=== PATIENT | male | born 1970 | race Caucasian/White ===

== ENCOUNTER 2017-05-17 09:21 | Emergency (ER) | payer OTHER ==
[2017-05-17 10:41] VITALS: BP 135/84
--- NOTE | 2017-05-17 11:07 | UC ---
General HPI - HPI Summary HPI Summary: 46 yo gentleman c/o last 3 days sinus pressure, cough. Sore throat with cough. Subj fever yesterday. Reports that he has a hx sinusitis every couple years, feels the same. Also notes that he has been tested for strep many times, and always negative. Mild cough, productive from sinus secretions, does not feel that cough is primary. No rash. No GI issues reported. - History of Current Complaint Chief Complaint: UCGeneralIllness Stated Complaint: SINUS Time Seen by Provider: 05/17/17 10:47 Hx Obtained From: Patient Pain Intensity: 0 - Allergy/Home Medications Allergies/Adverse Reactions: Allergies Allergy/AdvReac Type Severity Reaction Status Date / Time No Known Allergies Allergy Verified 05/17/17 10:41 Home Medications: Home Medications Cetirizine* [ZyrTEC 10 MG TAB*] 05/17/17 [History] PMH/Surg Hx/FS Hx/Imm Hx Previously Healthy: Yes - Surgical History Surgical History: Yes Surgery Procedure, Year, and Place: vasectomy - Family History Known Family History: Positive: Unknown - Social History Alcohol Use: None Substance Use Type: None Smoking Status (MU): Never Smoked Tobacco Review of Systems Constitutional: Fatigue Skin: Negative Eyes: Negative ENT: Sore Throat, Nasal Discharge, Sinus Congestion, Sinus Pain/Tenderness Respiratory: Cough Cardiovascular: Negative Gastrointestinal: Negative Genitourinary: Negative Motor: Negative Neurovascular: Negative Musculoskeletal: Negative Neurological: Negative Psychological: Negative Is Patient Immunocompromised?: No All Other Systems Reviewed And Are Negative: Yes Physical Exam Triage Information Reviewed: Yes Appearance: Well-Appearing, Well-Nourished Vital Signs: Initial Vital Signs Temp 98.5 F 05/17/17 10:36 Pulse 74 05/17/17 10:36 Resp 16 05/17/17 10:36 BP 135/84 05/17/17 10:36 Pulse Ox 98 05/17/17 10:36 Vital Signs Reviewed: Yes Eye Exam: Normal ENT: Positive: Pharyngeal erythema - no sores, no exudate. Uvula midline., Nasal congestion, TM dull - dull au TM, Hoarse voice - voice a little hoarse, Sinus tenderness Neck exam: Normal Neck: Positive: Supple Respiratory Exam: Normal Respiratory: Positive: Chest non-tender, Lungs clear, Normal breath sounds, No respiratory distress, No accessory muscle use Cardiovascular Exam: Normal Cardiovascular: Positive: RRR, No Murmur, Pulses Normal, Brisk Capillary Refill Abdominal Exam: Normal Abdomen Description: Positive: Nontender Musculoskeletal Exam: Normal Musculoskeletal: Positive: Strength Intact Neurological Exam: Normal - grossly nonfocal Psychological Exam: Normal - conversing easily and appropriately Skin Exam: Normal - no visible or reported rash. non-diaphoretic. Course/Dx - Course Course Of Treatment: Influenza nasal swab and strep testing discussed. Cough carefully considered but declined. Feels like usual sinus infection. Coa / tx plan discussed. Questions as posed answered to the best of my ability. - Differential Dx - Multi-Symptom Provider Diagnoses: Sinusitis Discharge - Discharge Plan Condition: Stable Disposition: HOME Prescriptions: Azithromyxin GRETA (NF) [Z-Greta (Zithromax) 250 mg tabs #6] 2 tab PO .TODAY, THEN 1 DAILY #6 tab Patient Education Materials: Antihistamine (By mouth), Sinusitis (ED) Referrals: Bianca Madera MD [Primary Care Provider] - Additional Instructions: Follow up with your primary care provider, per routine. Seek medical attention for worse or new problems in the meantime.
== END 2017-05-17 11:13 | disposition home or self-care (01) ==
LOC: UCCORT 09:21
DX: J32.9 Chronic sinusitis, unspecified (principal)
CPT/HCPCS: 99202; G0463

== ENCOUNTER 2019-05-09 08:48 | Emergency (ER) | payer OTHER ==
--- OUTSIDE RECORDS SUMMARY | 2019-05-09 08:58 | XMS REPORT | Continuity of Care Document ---
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 Problems Provider Date Prepatellar bursitis of right knee Lisa Thomas PA Onset: 02/26/2019 Social History Type Date Description Comments Sex Unknown Tobacco Use Start: Unknown Never Smoked Cigarettes Smoking Status Reviewed: 02/26/19 Never Smoked Cigarettes ETOH Use Denies alcohol use Tobacco Use Start: Unknown Patient has never smoked Recreational Drug Use Denies Drug Use Allergies, Adverse Reactions, Alerts Description No Known Drug Allergies Medications Active Medications SIG Qnty Indications Ordering Provider Date Multivitamin & Mineral 1 tablet by Unknown mouth once a day Liquid Xyzal Allergy 24HR 1 by mouth every Unknown 5mg day Tablets Benadryl Allergy 1/2 tab by Unknown 25mg mouth every Capsules night History Medications Keflex 1 by mouth 4 40capCarol Brewster MD 02/26/2019 - 500mg Capsules times a day 03/15/2019 Medications Administered in Office Medication SIG Qnty Indications Ordering Provider Date Depomedrol 40mg/1cc Homa Roberson [facility] 03/15/2019 (methylprednisolone acetate) Injection Depomedrol 40mg/1cc Homa Roberson [facility] 03/15/2019 (methylprednisolone acetate) Injection Immunizations Description No Information Available Vital Signs Date Vital Result Comment 03/15/2019 8:13am BP Systolic Sitting Left Arm 132 mmHg BP Diastolic Sitting Left Arm 85 mmHg Heart Rate 78 /min 03/01/2019 9:51am BP Systolic 117 mmHg BP Diastolic 73 mmHg Body Temperature 96.3 F Heart Rate 71 /min O2 % dC Oximetry 96 % Results Description No Information Available Procedures Date Code Description Status 03/15/2019 19547 Asp./Injection major joint Completed 02/23/2019 41470 Radiology, Knee 3 Views Completed Medical Devices Description No Information Available Encounters Type Date Location Provider Dx Diagnosis Office Visit 03/15/2019 Orthopaedic Office Homa Roberson M25.461 Effusion, right 8:00a S., [facility] knee M70.41 Prepatellar bursitis, right knee M25.561 Pain in right knee S83.221D Prph tear of medial meniscus, current injury, r knee, subs Office Visit 03/01/2019 9:45a Orthopaedic Office Karol, M25.461 Effusion, right Homa S., knee [facility] M25.561 Pain in right knee M70.41 Prepatellar bursitis, right knee S83.511D Sprain of anterior cruciate ligament of right knee, subs Office Visit 02/26/2019 Orthopaedic Lisa Thomas, M70.41 Prepatellar 2:00p Office PA bursitis, right knee Office Visit 02/23/2019 Orthopaedic Homa Roberson M25.561 Pain in right 10:00a Office S., [facility] knee M70.41 Prepatellar bursitis, right knee Assessments Date Code Description Provider 03/15/2019 M25.461 Effusion, right knee RobersonHoma S., [facility] 03/15/2019 M70.41 Prepatellar bursitis, right knee RobersonAdrianeHoma S., [facility] 03/15/2019 M25.561 Pain in right knee RobersonAdrianeHoma S., [facility] 03/15/2019 S83.221D Peripheral tear of medial meniscus, Homa Roberson S., [facility] current injury, right knee, subsequent encounter 03/01/2019 M25.461 Effusion, right knee RobersonHoma S., [facility] 03/01/2019 M25.561 Pain in right knee RobersonAdrianeHoma S., [facility] 03/01/2019 M70.41 Prepatellar bursitis, right knee RobersonAdrianeHoma S., [facility] 03/01/2019 S83.511D Sprain of anterior cruciate ligament of Roberson, Homa S., [facility] right knee, subsequent encounter 02/26/2019 M70.41 Prepatellar bursitis, right knee Lisa Thomas PA 02/23/2019 M25.561 Pain in right knee Homa Roberson, [facility] 02/23/2019 M70.41 Prepatellar bursitis, right knee Homa Roberson [facility] Plan of Treatment No Information Available Functional Status Description No Information Available Mental Status Description No Information Available Referrals Description No Information Available
--- OUTSIDE RECORDS SUMMARY | 2019-05-09 08:58 | XMS REPORT | Continuity of Care Document ---
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 Problems Provider Date Prepatellar bursitis [...] Ordering Provider Date Depomedrol 40mg/1cc Homa Roberson [facility] 03/15/2019 (methylprednisolone acetate) Injection Depomedrol 40mg/1cc Homa Roberson [facility] 03/15/2019 (methylprednisolone acetate) Injection Immunizations Description [...] Available Procedures Date Code Description Status 03/15/2019 60900 Asp./Injection major joint Completed 02/23/2019 25300 Radiology, Knee 3 Views Completed Medical Devices Description No Information Available Encounters Type Date Location Provider Dx Diagnosis Office Visit 03/01/2019 Orthopaedic Office Homa Roberson M25.461 Effusion, right 9:45a S., [facility] knee M25.561 Pain in right knee M70.41 Prepatellar bursitis, right knee S83.511D Sprain of anterior cruciate ligament of right knee, subs Office Visit 02/26/2019 Orthopaedic Lisa Thomas, M70.41 Prepatellar 2:00p Office PA bursitis, right knee Office Visit 02/23/2019 Orthopaedic Homa Roberson M25.561 Pain in right 10:00a Office S., [facility] knee M70.41 Prepatellar bursitis, right knee Assessments Date Code Description Provider 03/15/2019 M25.461 Effusion, right knee Roberson, Homa S., [facility] 03/15/2019 M70.41 Prepatellar bursitis, right knee Roberson, Homa S., [facility] 03/15/2019 M25.561 Pain in right knee Roberson, Homa S., [facility] 03/01/2019 M25.461 Effusion, right knee Roberson, Homa S., [facility] 03/01/2019 M25.561 Pain in right knee Roberson, Homa S., [facility] 03/01/2019 M70.41 Prepatellar bursitis, right knee Roberson, Homa S., [facility] 03/01/2019 S83.511D Sprain of anterior cruciate ligament of Roberson, Homa S., [facility] right knee, subsequent encounter 02/26/2019 M70.41 Prepatellar bursitis, right knee Lisa Thomas, PA 02/23/2019 M25.561 Pain in right knee Roberson, Homa S., [facility] 02/23/2019 M70.41 Prepatellar bursitis, right knee Roberson, Homa S., [facility] Plan of Treatment No Information Available Functional Status Description No Information Available Mental Status Description No Information Available Referrals Description No Information Available
[2019-05-09 09:14] VITALS: BP 148/88
--- NOTE | 2019-05-09 09:39 | UC ---
Abdominal Pain Male HPI - HPI Summary HPI Summary: 48 yo with onset of abdominal pain last night shortly after eating a light meal. Typically healthy with no hx of acid reflux, ulcer, irritable bowel. Normally passes stool daily and he had a normal stool passage in the night which did not relieve the pain. No hx of abdominal surgery in the past. No fever, has mild nausea, decreased appetite. Pain a bit decreased but still present. Does not drink alcohol, use nsaid's more than once or twice per month. Has modest intake of coffee. Eats well, non-smoker. - History of Current Complaint Chief Complaint: UCAbdominalPain Stated Complaint: ABDOMINAL PAIN Time Seen by Provider: 05/09/19 09:36 Hx Obtained From: Patient Onset/Duration: Sudden Onset, Lasting Hours - about 14 Severity Initially: Severe Severity Currently: Moderate Pain Intensity: 5 Location: Epigastric Radiates: No Character: Cramping, Dull Aggravating Factor(s): Movement Associated Signs And Symptoms: Positive: Decreased Appetite, Nausea. Negative: Diaphoresis, Fever, Cough, Chest Pain, Back Pain, Constipation, Blood in Stool, Vomiting, Diarrhea - Risk Factors Testicular Torsion: Negative Cardiac Risk Factors: Negative - Allergies/Home Medications Allergies/Adverse Reactions: Allergies Allergy/AdvReac Type Severity Reaction Status Date / Time No Known Allergies Allergy Verified 05/09/19 09:10 Home Medications: Home Medications Simethicone [Gas-X] 250 mg PO ONCE 05/09/19 [History Confirmed 05/09/19] PMH/Surg Hx/FS Hx/Imm Hx Previously Healthy: Yes - Surgical History Surgical History: Yes Surgery Procedure, Year, and Place: vasectomy - Family History Known Family History: Positive: Other - No FH of GI disease - Social History Occupation: Employed Full-time Lives: With Family Alcohol Use: None Substance Use Type: None Smoking Status (MU): Former Smoker Review of Systems All Other Systems Reviewed And Are Negative: Yes Constitutional: Positive: Negative Skin: Positive: Negative Eyes: Positive: Negative ENT: Positive: Negative Respiratory: Positive: Negative Cardiovascular: Negative: Palpitations, Chest Pain Genitourinary: Negative: Dysuria, Frequency, Urgency Motor: Positive: Negative Neurovascular: Positive: Negative Musculoskeletal: Positive: Negative Neurological/Mental Status: Positive: Negative Psychological: Positive: Negative Is Patient Immunocompromised?: No Physical Exam Triage Information Reviewed: Yes Appearance: Well-Appearing - looks mildly fatigued, well hydrated., Pain Distress - mild to moderate Vital Signs: Initial Vital Signs Temp 98.2 F 05/09/19 09:06 Pulse 70 05/09/19 09:06 Resp 16 05/09/19 09:06 BP 148/88 05/09/19 09:06 Pulse Ox 99 05/09/19 09:06 Eye Exam: Normal ENT: Positive: Pharynx normal Neck: Positive: Supple, Nontender, No Lymphadenopathy Respiratory: Positive: Lungs clear, Normal breath sounds Cardiovascular: Positive: RRR, No Murmur Abdominal Exam: Other - mild abdominal bloating. Abdomen Description: Positive: No Organomegaly, Soft, Distended - mild, Other: - Tender in epigastrium without guarding or rebound. Negative: Guarding, Hepatomegaly, McBurney's Point Tenderness, Peritoneal Signs, Splenomegaly Bowel Sounds: Positive: Hyperactive Musculoskeletal Exam: Normal Neurological Exam: Normal Psychological Exam: Normal Skin Exam: Normal Abd Pain Male Course/Dx - Course Course Of Treatment: Discussed differential: could be onset of viral gastroenteritis, could be acid related illness (low risk factors), could be onset of appendicitis. Vitals are stable and pain is relatively mild. Suggested antacid, clear fluids only, observation at home. To ER if pain increases. - Differential Dx/Clinical Impression Differential Diagnosis/HQI/PQRI: Bowel Obstruction, Gall Bladder Disease, Pancreatitis, Peptic Ulcer Disease, Other - gastritis Provider Diagnosis: Abdominal pain, epigastric Discharge ED - Sign-Out/Discharge Documenting (check all that apply): Patient Departure All imaging exams completed and their final reports reviewed: No Studies - Discharge Plan Condition: Stable Disposition: HOME Patient Education Materials: Abdominal Pain (ED) Referrals: Lizzie Hoyos PA [Primary Care Provider] - Additional Instructions: As discussed, there are a number of possibilities: This could be the start of a viral gastroenteritis (would progress to vomiting and diarrhea). It could be an acid related problem such as an early ulcer, but you have low risk factors for this. It could be a bowel obstruction or onset of appendicitis: these will become obvious. At this time: You have been given an antacid. Rest at home and take clear fluids only (water, katy mylene, clear juices). If the pain persists or worsens, please proceed directly to the emergency room for more testing. If you improve and have a return of appetite, you can slowly advance your intake to include easily digestible foods (soup, pasta, cooked vegetables and fruits). - Billing Disposition and Condition Condition: STABLE Disposition: Home
[2019-05-09] MEDS ORDERED: Al Hydrox/Mg Hydrox/Simet LIQ* 30 ML UDC PO ONE (09:57)
== END 2019-05-09 10:16 | disposition home or self-care (01) ==
LOC: UCCORT 08:48
DX: R10.13 Epigastric pain (principal); Z87.891 Personal history of nicotine dependence
CPT/HCPCS: 99212; A9270-GY; G0463